=== PATIENT | male | born 1945 | race Caucasian/White ===

== ENCOUNTER → 2016-11-19 | Outpatient (CLI) | payer MEDICARE ==
[~2016-11-19] MED LIST: CALC600T13 PO; CO Q100C9 PO; DIVA250T PO; E-20CAP PO; GRAP100C PO; HYDR-3583 PO; IBUP100S30 PO; IBUP400T20 PO; LIDO5DIS35 TD; LIDO5DIS35 TOPICAL; LISI-360 PO; LISI-515 PO; MULT1TAB84 PO; OMEP20TA PO; OXYC1TAB36 PO; PERC10TA27 PO; POTA99TA PO; PRED1TAB PO; PRED5TAB PO; PROSCAP7 PO; TURM500C PO; VITA10007 PO; VITACAP7 PO
[2016-11-19 12:23] LABS: AUTOMATED NEUTROPHIL # 4.5 TH/MM3 (1.8-7.7); BASOPHIL # 0.1 TH/MM3 (0-0.2); BASOPHIL % 1.1 % (0.0-2.0); EOSINOPHIL # 0.1 TH/MM3 (0-0.4); EOSINOPHIL % 1.7 % (0.0-4.0); HEMATOCRIT 45.4 % (39.0-51.0); HEMO FLAGS DIFF FINAL; LYMPH % 23.7 % (9.0-44.0); LYMPHOCYTE # 1.6 TH/MM3 (1.0-4.8); MEAN CELL VOLUME 85.4 FL (80.0-100.0); MEAN CORPUSCULAR HGB CONC 33.9 % (32.0-36.0); MONO % 8.7 % (0.0-8.0); NEUT % 64.8 % (16.0-70.0); PLATELET COUNT 154 TH/MM3 (150-450); RED BLOOD COUNT 5.32 MIL/MM3 (4.50-5.90); RED CELL DISTRIBUTION WIDTH 14.3 % (11.6-17.2); WHITE BLOOD COUNT 6.9 TH/MM3 (4.0-11.0)
[2016-11-19 12:31] LABS: APTT (PATIENT) 24.4 SEC (24.3-30.1); PROTHROMBIN TIME - PATIENT 10.5 SEC (9.8-11.6)
[2016-11-19 13:03] LABS: ALKALINE PHOSPHATASE 67 U/L (45-117); ALT (GPT) 35 U/L (12-78); ANION GAP 7 MEQ/L (5-15); AST (GOT) 15 U/L (15-37); BICARBONATE 32.2 MEQ/L (21.0-32.0); BLOOD UREA NITROGEN 17 MG/DL (7-18); CHLORIDE 102 MEQ/L (98-107); GLOMERULAR FILTRATION RATE 72 ML/MIN (>89); GLUCOSE,FASTING 103 MG/DL (74-99); POTASSIUM 4.2 MEQ/L (3.5-5.1); SODIUM (NA) 141 MEQ/L (136-145); TOTAL BILIRUBIN ADULT 0.6 MG/DL (0.2-1.0)
--- NOTE | 2016-11-19 13:31 | RADRPT ---
EXAM DATE/TIME: 11/19/2016 13:04 [facility] COMPARISON: No previous studies available for comparison. INDICATIONS : Evaluate for penumonia, pneumothorax, or communicable disease. Pre op for cervical spine surgery. MEDICAL HISTORY : Carcinoma, prostatic. Myocardial infarction. SURGICAL HISTORY : None. ENCOUNTER: Initial ACUITY: 1 day PAIN SCORE: 0/10 LOCATION: chest FINDINGS: PA and lateral views of the chest demonstrate the lungs to be symmetrically aerated without evidence of mass, infiltrate or effusion. Heart size is normal. There is mild tortuosity of the thoracic aorta .. Osseous structures are intact. CONCLUSION: No acute disease. Cheri Preston MD on November 19, 2016 at 13:29 Board Certified Radiologist. This report was verified electronically.
[2016-11-19 14:16] LABS: BLOOD, URINE NEG (NEG); GLUCOSE,URINE NEG (NEG); KETONE, URINE NEG (NEG); MUCUS URINE FEW /lpf (OCC); NITRITE,URINE NEG (NEG); PH, URINE 5.5 (5.0-8.5); SQUAMOUS EPITHELIAL CELL URINE <1 /hpf (0-5); URINE COLOR YELLOW (YELLW/STRAW)
[2016-11-19 14:19] LABS: COMMENT (UR) CULT NOT INDICATED; CULTURE IF INDICATED CULT NOT INDICATED
--- NOTE | 2016-11-20 22:49 | EKG ---
Date Performed: 11/19/2016 Time Performed: 12:16:13 PTAGE: 71 years EKG: Sinus rhythm NORMAL ECG NO PREVIOUS TRACING DOCTOR: Yoni Ennis Interpretating Date/Time 11/20/2016 22:45:17
== END ==
LOC: CPRE 11:40
PROVIDERS: ATTEND Neurological Surgery
DX: Z01.810 Encounter for preprocedural cardiovascular examination (principal); Z01.812 Encounter for preprocedural laboratory examination; M47.812 Spondylosis without myelopathy or radiculopathy, cervical region
CPT/HCPCS: 36415; 71020; 80053; 81001; 85025; 85610; 85730; 93005

== ENCOUNTER → 2017-03-03 | Outpatient (CLI) | payer MEDICARE ==
[~2017-03-03] MED LIST changes: -IBUP100S30 PO; -LIDO5DIS35 TD; -LISI-360 PO; -PERC10TA27 PO; -PRED1TAB PO
[2017-03-03 10:04] LABS: AUTOMATED NEUTROPHIL # 3.8 TH/MM3 (1.8-7.7); BASOPHIL % 0.7 % (0.0-2.0); EOSINOPHIL # 0.1 TH/MM3 (0-0.4); EOSINOPHIL % 2.1 % (0.0-4.0); HEMATOCRIT 42.7 % (39.0-51.0); HEMO FLAGS DIFF FINAL; LYMPH % 22.1 % (9.0-44.0); LYMPHOCYTE # 1.3 TH/MM3 (1.0-4.8); MEAN CELL VOLUME 87.2 FL (80.0-100.0); MEAN CORPUSCULAR HEMOGLOBIN 30.1 PG (27.0-34.0); MEAN CORPUSCULAR HGB CONC 34.5 % (32.0-36.0); NEUT % 65.1 % (16.0-70.0); PLATELET COUNT 149 TH/MM3 (150-450); RED CELL DISTRIBUTION WIDTH 15.1 % (11.6-17.2); WHITE BLOOD COUNT 5.8 TH/MM3 (4.0-11.0)
[2017-03-03 10:16] LABS: BLOOD, URINE NEG (NEG); GLUCOSE,URINE NEG (NEG); KETONE, URINE NEG (NEG); MUCUS URINE FEW /lpf (OCC); NITRITE,URINE NEG (NEG); URINE COLOR YELLOW (YELLW/STRAW)
[2017-03-03 10:18] LABS: APTT (PATIENT) 24.7 SEC (24.3-30.1); PROTHROMBIN TIME - PATIENT 10.5 SEC (9.8-11.6)
[2017-03-03 10:28] LABS: COMMENT (UR) CULT NOT INDICATED; CULTURE IF INDICATED CULT NOT INDICATED
[2017-03-03 11:38] LABS: ALKALINE PHOSPHATASE 60 U/L (45-117); ALT (GPT) 47 U/L (12-78); ANION GAP 7 MEQ/L (5-15); AST (GOT) 20 U/L (15-37); BICARBONATE 30.7 MEQ/L (21.0-32.0); BLOOD UREA NITROGEN 17 MG/DL (7-18); CHLORIDE 104 MEQ/L (98-107); GLOMERULAR FILTRATION RATE 68 ML/MIN (>89); GLUCOSE,FASTING 111 MG/DL (74-99); POTASSIUM 4.4 MEQ/L (3.5-5.1); SODIUM (NA) 142 MEQ/L (136-145); TOTAL BILIRUBIN ADULT 0.4 MG/DL (0.2-1.0)
== END ==
LOC: CPRE 09:19
PROVIDERS: ATTEND Neurological Surgery
DX: Z01.812 Encounter for preprocedural laboratory examination (principal); Z01.818 Encounter for other preprocedural examination; M47.812 Spondylosis without myelopathy or radiculopathy, cervical region
CPT/HCPCS: 36415; 80053; 81001; 85025; 85610; 85730

== ENCOUNTER 2017-03-18 09:09 | Observation (INO) | payer MEDICARE ==
[~2017-03-18] VITALS: Ht 172.7 cm; Wt 99.2 kg
[~2017-03-18 09:09] MED LIST changes: -HYDR-3583 PO
[2017-03-18 10:00] VITALS: BP 137/89; PULSE 69; RESP 18; TEMP 97.9; O2SAT 98
[2017-03-18] MEDS ORDERED: CHLORHEXIDINE GLUCONATE 2 % 1 PACK (2 CLOTHS) TOPICAL PRN (10:00)
[2017-03-18] MEDS ORDERED: SODIUM CHLORID 0.9% 500 ML IV PRN (10:00)
[2017-03-18] MEDS ORDERED: POVIDONE IODINE 5% (ANTISEPSIS KIT) 4 APPLICATIONS EACH NARE PRN (10:00)
[2017-03-18] MEDS ORDERED: VANCOMYCIN HCL 1000 MG ON-CALL/NS 250 ML IV SCH ×2 (10:00)
[2017-03-18] MEDS ORDERED: METOPROLOL TARTRATE 25 MG TAB PO PRN (10:00)
[2017-03-18] MEDS ORDERED: LACTATED RINGER'S 1000 ML IV PRN (10:00)
[2017-03-18] MEDS ORDERED: SODIUM CHLOR 0.9% 1000 ML INJ 1,000 ML IV SCH (10:00)
[2017-03-18] MEDS ORDERED: INSULIN HUMAN REGULAR 1,000 UNITS/10 ML VIAL SQ PRN (10:00)
[2017-03-18] MEDS ORDERED: PHENYLEPH/NS 1000 MCG/10 ML SYR IV ONE (12:00)
[2017-03-18] MEDS ORDERED: PROPOFOL 200 MG/20 ML AMP IV ONE (12:00)
[2017-03-18] MEDS ORDERED: ONDANSETRON HCL 4 MG/2 ML VIAL IV PUSH ONE (12:00)
[2017-03-18] MEDS ORDERED: LACTATED RINGER'S 1000 ML INJ 2,000 ML IV ONE (12:00)
[2017-03-18] MEDS ORDERED: FAMOTIDINE 20 MG/2 ML VIAL ONE (12:34)
[2017-03-18] MEDS ORDERED: GELFOAM SIZE 100 ONE (14:43)
[2017-03-18] MEDS ORDERED: MICROFIBRILLAR COLLAGEN HEMOSTAT 70 X 35 MM BANDAGE ONE (14:43)
[2017-03-18] MEDS ORDERED: GENTAMICIN SULFATE 80 MG/2 ML VIAL ONE (14:43)
[2017-03-18] MEDS ORDERED: THROMBIN (TOPICAL) 5,000 UNIT VIAL ONE (14:43)
[2017-03-18] MEDS ORDERED: ceFAZolin 2 GM PREMIX 50 ML ONE (14:43)
[2017-03-18] MEDS ORDERED: SODIUM CHLORIDE 0.9% FLUSH 5 ML FLUSH IVF PRN (15:30)
[2017-03-18] MEDS ORDERED: RESP: ALBUTEROL 2.5 MG/3 ML NEB (PRN) INH (15:30)
[2017-03-18] MEDS ORDERED: cloNIDine HCL 0.1 MG TAB PO/NG PRN (15:30)
[2017-03-18] MEDS ORDERED: MORPHINE SULFATE 4 MG/ML INJ IV PUSH PRN ×2 (15:30)
[2017-03-18] MEDS ORDERED: ACETAMINOPHEN/HYDROcodone 325 MG/10 MG TAB PO PRN (15:30)
[2017-03-18] MEDS ORDERED: MENTHOL LOZENGE BUCCAL PRN (15:30)
[2017-03-18] MEDS ORDERED: BISACODYL 10 MG SUPP RECTAL PRN (15:30)
[2017-03-18] MEDS ORDERED: CYCLOBENZAPRINE HCL 10 MG TAB PO PRN (15:30)
[2017-03-18] MEDS ORDERED: ONDANSETRON HCL 4 MG/2 ML VIAL IV PRN (15:30)
[2017-03-18] MEDS ORDERED: ACETAMINOPHEN 325 MG TAB PO PRN (16:00)
[2017-03-18] MEDS ORDERED: DO NOT ADM ANY ANTICOAGULANT DRUGS PRN (16:10)
[2017-03-18] MEDS ORDERED: fentaNYL CITRATE 250 MCG/5 ML AMP ONE (16:12)
[2017-03-18] MEDS: DEXAMETHASONE SOD PHOS 4 MG/ML VIAL IV SCH ×2 (16:30→21:57)
[2017-03-18] MEDS: NS + KCL 20 MEQ INJ 1,000 ML IV SCH (16:30)
--- NOTE | 2017-03-18 16:32 | PD.OP ---
Operative Report Date of Surgery: March 18, 2017 Preoperative Diagnosis: C3 C4 cervical disc herniation Postoperative Diagnosis: C3 C4 cervical disc herniation Procedure: C3-C4 anterior cervical discectomy, interbody arthrodesis using peek cage filled with autologous bone graft, C5-6 instrumented fixation using simplicity plate and screws Anesthesia: general Surgeon: Bird Joel Edge Worker(s): Dennise Jeter Operation and Findings: INDICATIONS FOR THE PROCEDURE Mr barba is a 49 year-old male who presented with intractable neck pain and clinical evidence of upper extremity C4 radiculopathy and a disk herniation causing mass effect on the anterior spinal cord. He has failed maximum nonsurgical management including multiple modalities of conservative treatment as well as pain management interventions by an interventional pain specialist. A surgical decompression and arthrodhesis were indicated. The [id number] details of the procedure, indications, alternatives, risks and potential complications were fully discussed with the patient. The patient fully understood. All The questions were answered. No guarantees were given. The patient voiced requesting the procedure and provided informed consents. The patient was offered the alternative of delaying the procedure and continuing with nonsurgical management. DETAILS OF THE SURGICAL PROCEDURE After the induction of general anesthesia, endotracheal intubation was performed. A Ren catheter, bilateral CARLOS ENRIQUE hose, and sequential compression devices were placed and kept throughout the procedure. Placement of electrodes for neurophysiological monitoring of the somatosensorial evoked potentials. motor evoked potentials, and EMG as well as laryngeal nerve monitoring was achieved. The patient was positioned supine on a Jonathan table with the head over a gel doughnut. All pressure points were carefully padded with eggcrate mattress. The eyes were tapped shut after ointment was applied by the anesthesiologist to prevent corneal abrasion. A Jax hugger was placed over the exposed lower body to maintain control of the core body temperature. The electrophysiological team placed the needles and electrodes in their proper location and baseline SSEP's and motor evoked potentials were registered. The anterior cervical region was prepped and draped in the usual sterile fashion. A localizing x-ray was performed with a C-arm. The surgical procedure was performed in several steps as follow: SURGICAL APPROACH A skin incision was made along the superior cervical crease with a #10 blade. The dissection was carried out through the platysma exposing the sternocleidomastoid muscle. The cervical spine was approached following the fascial layers of the neck just medial to the anterior border of the sternocleidomastoid and carotid sheath by a combination of sharp and dull dissection. The tissues were severely abnormal and scarred, related to the previous radiation therapy to the neck. The omohyoid muscle was identified and carefully dissected laterally and the deep cervical fascia was carefully opened. The longus colli muscles were retracted to each side of the midline. An anterior osteophytic spur was removed. A marker was placed at the disc space C3-4 and a cross-table lateral x-ray performed with a C-arm. SURGICAL DECOMPRESSION In order to decompress the anterior surface of the spinal cord it was necessary to preform a microsurgical resection of the disk at C3-4. At this point in the procedure the operating microscope was draped in the usual sterile fashion and brought to the field. The rest of the surgical procedure was performed using microdissection technique with the exception of the closure. Under the operative microscopic, a self-retaining retractor was placed underneath the longus colli muscle. The annulus was incised with a #15 blade and a microdiscectomy was then carefully carried out using angled curets and pituitary forceps. There was a disk herniation with an extrusion, which was producing severe mass effect and compression of the spinal cord. The posterior longitudinal ligament was then elevated with an angled curet and incised with a 15 bladed knife. A careful resection of the posterior longitudinal ligament was carried out using a thin footplate 2 mm Kerrison.A nerve hook was used to assess the epidural space behind the vertebral bodies C3 and C4 in search for residual disk fragments. The margins of the posterior endplates at C3 and C4 were carefully drilled and undercut with a TPS drill under high magnification. The decompression was then carried out laterally, and a bilateral foraminotomy was performed with a 2mm thin foot Kerrison. Then the vertebral bodies above and below the disk space were undercut using a 2 mm thin foot Kerrison. The epidural space was the systematically assessed with a nerve hook in search for disk fragments. An excellent decompression was achieved in both, the dural sac and bilateral exiting nerve roots. The incision was then irrigated with a large amount of antibiotic solution INTERBODY ARTHRODHESIS In order to avoid collapse of the disk space which would result in bilateral foraminal stenosis, and to increase the chances of a successful fusion, it was necessary to place an interbody cage filled with autologous bone. At this point of the procedure, the superior and inferior endplates were then evenly decorticated with a TPS drill. The use of a drill in combination with a curette allowed me to systematically remove the cartilaginous endplates, exposing healthy bone for the interbody arthrodesis. forteen millimeters distraction pins were then placed at the vertebral bodies adjacent to the disk space, and gentle distraction was applied. The size of the interbody cage was then assessed using different size spacers, and a rasp was used to ensure no residual cartilage. A PEEK cage of the appropriate size was selected, and the interbody arthrodesis was then preformed by carefully impacting a PEEK cage filled with autologous bone graft to the disc space C3-4. An excellent position of the cage was achieved. This was was confirmed anatomically by feeling the space posterior to the implant and distance to the anterior surface of the dural sac. Radiological confirmation of the position was performed with a cross lateral xray performed with the C-arm. INTERNAL INSTRUMENTAL FIXATION Once that the interbody device was in an appropriate position, it was necessary to stabilize the spine with anterior instrumentation. Anterior instrumentation has demonstrated to increase the rate of fusion, accelerate the patient's recovery, and decrease the rate of failed interbody grafts. At this point of the procedure, the distance between the vertebral bodies was carefully measures , and a Hallmark plate was brought to the field and presented in front of the vertebral bodies C3 C4. [employer] holes were then drilled using the TPS drill, and the plate was then secured to the spine using self-drilling, self-tapping screws. Initially, the inferior right screw was inserted, followed by placement of the contralateral upper screw. The remanding screws were sequentially placed in a contra-lateral fashion. A proper purchase was achieved with all screws and the position of the cage, plate and screws, and alignment of the spine was assessed anatomically by direct visualization, and radiologically by performing a cross lateral xray of the cervical spine with the C-arm. CLOSURE The incision was irrigated with several liters of antibiotic solution. Hemostasis was achieved with a bipolar. The screws were locked to prevent backing out. A 7 mm Jonathan-Mathis drain was left in the prevertebral space and externalized through a separate stab incision. The incision was then closed in layers. 3-0 Vicryl with interrupted sutures was used to close the platysma and subcutaneous tissue. The skin was closed with 4-0 running subcuticular Vicryl and Dermabond was applied. The drain was secured with a 3-0 nylon. At the end of the procedure the sponge, needle and instrument counts were all correct. The estimated blood loss was less than 50 cc. No blood transfusion was given. No intraoperative complications occurred. The patient received prophylactic antibiotics. The patient was then extubated and transferred to the recovery room in stable condition. Bird Joel MD March 18, 2017 16:32
--- NOTE | 2017-03-18 16:59 | RADRPT ---
EXAM DATE/TIME: 03/18/2017 13:39 [facility] COMPARISON: No previous studies available for comparison. INDICATIONS : Fusion C3,C4 with screw and plate placement. MEDICAL HISTORY : Carcinoma, prostatic. Myocardial infarction. SURGICAL HISTORY : None. ENCOUNTER: Initial ACUITY: 1 day PAIN SCORE: Non-responsive. LOCATION: Cervical spine. FINDINGS: 2 intraoperative spot images of the cervical spine. Anterior fusion hardware at C3-4. Alignment withi n normal limits. CONCLUSION: Anterior fusion hardware at C3-4. Roland Bhatia MD on March 18, 2017 at 16:56 Board Certified Radiologist. This report was verified electronically.
[2017-03-18] MEDS: ACETAMINOPHEN/HYDROcodone 325 MG/10 MG TAB PO PRN ×2 (18:01→22:00)
[2017-03-18 20:27] VITALS: BP 157/77; PULSE 104; RESP 19; TEMP 98.1; O2SAT 96
[2017-03-18] MEDS ORDERED: NATURAL PRODUCTS PO SCH (21:00)
[2017-03-18] MEDS ORDERED: SODIUM CHLORIDE 0.9% FLUSH 5 ML FLUSH IVF SCH (21:00)
[2017-03-18] MEDS ORDERED: CALCIUM CARBONATE 1.25 GM (CA 500 MG) TAB PO SCH (21:00)
[2017-03-18] MEDS: ceFAZolin 2 GM PREMIX 50 ML IV SCH (21:56)
[2017-03-18] MEDS: LISINOPRIL 10 MG TAB PO SCH (21:56)
[2017-03-18] MEDS: DIVALPROEX SODIUM DELAYED RELEASE 250 MG TAB PO SCH (21:56)
[2017-03-18] MEDS: DOCUSATE SODIUM 100 MG CAP PO SCH (21:56)
[2017-03-19 00:23] VITALS: BP 142/84; PULSE 96; RESP 18; TEMP 97.2; O2SAT 94
[2017-03-19 04:02] VITALS: BP 139/78; PULSE 83; RESP 18; TEMP 97; O2SAT 97
[2017-03-19] MEDS: ceFAZolin 2 GM PREMIX 50 ML IV SCH (05:26)
[2017-03-19] MEDS: NS + KCL 20 MEQ INJ 1,000 ML IV SCH (05:26)
[2017-03-19] MEDS: DEXAMETHASONE SOD PHOS 4 MG/ML VIAL IV SCH (05:26)
[2017-03-19 08:02] VITALS: BP 159/97; PULSE 89; RESP 18; TEMP 96.2; O2SAT 97
[2017-03-19] MEDS: DIVALPROEX SODIUM DELAYED RELEASE 250 MG TAB PO SCH (08:58)
[2017-03-19] MEDS: DOCUSATE SODIUM 100 MG CAP PO SCH (08:59)
[2017-03-19] MEDS: LISINOPRIL 10 MG TAB PO SCH (08:59)
[2017-03-19] MEDS ORDERED: PT:POTASSIUM 99 MG PO SCH (09:00)
[2017-03-19] MEDS ORDERED: predniSONE 5 MG TAB PO SCH (09:00)
[2017-03-19] MEDS ORDERED: MULTIVITAMINS/MINERALS THERAPEUTIC TAB PO SCH (09:00)
[2017-03-19] MEDS ORDERED: NON-FORMULARY DRUG (B-Complex Vitamins (B Complex) 1 CAP) PO SCH (09:00)
[2017-03-19] MEDS ORDERED: VITAMIN B COMPLEX/VIT C TAB PO SCH (09:00)
[2017-03-19] MEDS ORDERED: ASCORBIC ACID 500 MG TAB PO SCH (09:00)
[2017-03-19] MEDS ORDERED: PANTOPRAZOLE SOD 40 MG DELAYED RELEASE TAB PO SCH (09:00)
[2017-03-19] MEDS ORDERED: NON-FORMULARY DRUG (Potassium 1 TAB) PO SCH (09:00)
[2017-03-19] MEDS: ACETAMINOPHEN/HYDROcodone 325 MG/10 MG TAB PO PRN (09:02)
[2017-03-19] MEDS ORDERED: HYDR-3583 PO (09:06)
--- NOTE | 2017-03-19 09:57 | HHI.DCPOC ---
Discharge Care Plan Diagnosis: (1) Status post cervical arthrodesis Goals to Promote Your Health * To prevent worsening of your condition and complications * To maintain your health at the optimal level Directions to Meet Your Goals Take your medications as prescribed Follow your dietary instruction Follow activity as directed Keep your appointments as scheduled Take your immunizations and boosters as scheduled If your symptoms worsen call your PCP, if no PCP go to Urgent Care Center or Emergency Room Smoking is Dangerous to Your Health. Avoid second hand smoke Call the 24-hour hour crisis hotline for domestic abuse at Kassandra Loya March 19, 2017 09:57
[2017-03-19] MEDS ORDERED: PNEUMOCOCCAL POLYVALENT INJ 25 MCG/0.5 ML SYR IM ONE (10:00)
--- NOTE | 2017-03-19 10:04 | HHI.DS ---
Discharge Summary Admission Date March 18, 2017 at 15:24 Discharge Date: March 19, 2017 Admitting Diagnosis s/p ACDF (1) Status post cervical arthrodesis ICD Code: Z98.1 Brief History Mr Solorio is a 49 year-old male who presented with intractable neck pain and clinical evidence of upper extremity C4 radiculopathy and a disk herniation causing mass effect on the anterior spinal cord. He has failed maximum nonsurgical management including multiple modalities of conservative treatment as well as pain management interventions by an interventional pain specialist. A surgical decompression and arthrodesis were indicated. Hospital Course Mr. Solorio underwent C3-C4 anterior cervical discectomy, interbody arthrodesis using peek cage filled with autologous bone graft, C5-6 instrumented fixation using simplicity plate and screws on March 18, 2017. His surgery went well without complications. Activity restrictions, wound care, and signs and symptoms to watch for were fully discussed with the patient. He will be discharged home in stable conditions. Pt Condition on Discharge: Stable Discharge Disposition: Discharge Home Discharge Instructions DIET: Follow Instructions for: Heart Healthy Diet ACTIVITIES You can perform: Weight Bearing As Christianne ADDITIONAL Activity Instructio: Avoid strenuous activities, heavy lifting, overhead activities, repetitive bending, twisting, pushing, pulling or any activities which might result in stress over the spine. Avoid situtation that will put at risk for falls. Use assistive device as needed for walking. Wear cervical collar at all times, may remove only with meals. New Medications: Hydrocodone-Acetaminophen (Hydrocodone-Acetaminophen) 10-325 mg Tab 1 TAB PO Q8HR PRN PAIN SCALE 1 TO 10 #90 Ref 0 TAB Continued Medications: Ascorbic Acid (Vitamin C) 1,000 Mg Tab 1000 MG PO DAILY Nutritional Supplement Ref 0 TAB B-Complex Vitamins (B Complex) 1 Cap 1 CAP PO DAILY Nutritional Supplement #30 Ref 0 CAP Calcium (Calcium) 600 Mg Tab 600 MG PO BID TAB Divalproex DR (Divalproex DR) 250 Mg Tabdr 250 MG PO BID Control Seizures #60 Ref 0 TAB Lidocaine Patch 12 HR (Lidoderm Patch 12 HR) 5% Patch 1 PATCH TOPICAL DAILY Remove patch after 12 hours Pain Management #1 Ref 0 BOX Lisinopril (Lisinopril) 20 Mg Tab 10 MG PO BID #30 Ref 0 TAB Misc Natural Products (Prostate Health) 1 Cap 1 CAP PO BID Multiple Vitamins W/ Minerals (Multivitamin Adults) 1 Tab 1 TAB PO DAILY Nutritional Supplement Ref 0 TAB Omeprazole (Omeprazole) 20 Mg Tab 20 MG PO DAILY #30 Ref 0 TAB Oxycodone-Acetaminophen (Oxycodone-Acetaminophen) 10-325 mg Tab 1 TAB PO Q6H PRN PAIN Ref 0 TAB Potassium (Potassium) 99 Mg Tab 1 TAB PO DAILY Prednisone (Prednisone) 5 Mg Tab 5 MG PO DAILY Ref 0 TAB Kassandra Loya March 19, 2017 10:04
== END 2017-03-19 12:01 | disposition home or self-care (01) ==
LOC: HSDC 09:09 → HSDI 15:24 → N06A 17:48
PROVIDERS: ADMIT Neurological Surgery; ATTEND Neurological Surgery
DX: M50.11 Cervical disc disorder with radiculopathy, high cervical region (principal); I25.2 Old myocardial infarction; I10 Essential (primary) hypertension; I25.10 Atherosclerotic heart disease of native coronary artery without angina pectoris; K21.9 Gastro-esophageal reflux disease without esophagitis; G62.9 Polyneuropathy, unspecified; Z85.46 Personal history of malignant neoplasm of prostate
CPT/HCPCS: 20936; 22551; 22853; 72040; 76000; 97162; C1713; G0378; J0690; J1100; J1580; J2270; J2370; J2405; J3010; J3370; J3480; J7050; J7120; J7512; L0150; L0172; G8987-GP; G8988-GP